=== PATIENT | female | born 1970 | race Caucasian/White ===

== ENCOUNTER → 2016-07-09 | Outpatient (CLI) | payer BC ==
[2016-04-03 10:00] VITALS: BP 119/77
[~2016-07-09] MED LIST: DULO20CA PO; FERR-26 PO; GADOBUTROL 10 MMOL/10 ML VIAL IV ONE; LEVO50TA5 PO
--- NOTE | 2016-07-09 14:11 | KCIC ---
PROCEDURE MRI of the brain without and with contrast 07/09/2016 HISTORY Migraine headaches for the last 3-4 months. TECHNIQUE Unenhanced T1 weighted sagittal and axial, T2 weighted, FLAIR, gradient echo and diffusion weighted axial images of the brain were obtained. After the intravenous administration of 10 cc of Gadavist, enhanced T1 weighted axial and coronal images of the brain were obtained. FINDINGS The ventricles and sulci are within normal limits in size and configuration. No area of significant abnormal signal intensity is seen involving brain parenchyma. No extra-axial fluid collection is seen. There is no MRI evidence of acute ischemia/infarction. No abnormal area of contrast enhancement is noted. A 2.2 centimeter mucous retention cyst is seen involving the left maxillary sinus. There are minimal bilateral mastoid effusions. Normal flow voids are seen within the major vascular structures surrounding the brain parenchyma. Mild mucosal thickening is seen scattered throughout the paranasal sinuses. IMPRESSION Mild paranasal sinus and mastoid disease. Otherwise negative study. Electronically signed by: Rosendo Arechiga MD (Jul 09, 2016 14:10:12)
== END | disposition home or self-care (01) ==
LOC: KCIC MRI 12:16
PROVIDERS: ATTEND Nurse Practitioner Family
DX: G43.909 Migraine, unspecified, not intractable, without status migrainosus (principal)
CPT/HCPCS: 70553; A9585